=== PATIENT | male | born 1945 | race Caucasian/White ===

== ENCOUNTER 2018-09-04 14:09 | Emergency (ER) | payer MEDICARE, OTHER ==
[~2018-09-04] VITALS: Ht 167.6 cm; Wt 93.0 kg
[2018-09-04 15:15] LABS: BASO % 1 % (0-3); EOS # 0.1 x10^3/uL (0.0-0.7); EOS % 3 % (0-3); HEMOGLOBIN 15.2 g/dL (13.0-17.5); LYMPH # 1.8 x10^3/uL (1.0-4.8); LYMPH % 39 % (24-48); MEAN CORPUSCULAR HEMOGLOBIN 32 pg (25-35); MEAN CORPUSCULAR HGB CONC 35 g/dL (31-37); MEAN CORPUSCULAR VOLUME 91 fL (79-100); MONO # 0.5 x10^3/uL (0.0-1.1); MONO % 10 % (0-9); NEUT # 2.2 x10^3uL (1.8-7.7); NEUT % 47 % (31-73); PLATELET COUNT 167 x10^3/uL (140-400); RED BLOOD COUNT 4.83 x10^6/uL (4.30-5.70); RED CELL DISTRIBUTION WIDTH 14.1 % (11.5-14.5); WHITE BLOOD COUNT 4.6 x10^3/uL (4.0-11.0)
[2018-09-04] MEDS ORDERED: valACYclovir 500 MG TABLET. PO ONE (15:15)
[2018-09-04 15:24] LABS: CALCIUM 9.8 mg/dL (8.5-10.1); GFR 73.5; POTASSIUM 3.7 mmol/L (3.5-5.1)
[2018-09-04 15:30] LABS: ALBUMIN 4.1 g/dL (3.4-5.0); ALBUMIN/GLOBULIN RATIO 1.2 (1.0-1.7); TOTAL BILIRUBIN 0.6 mg/dL (0.2-1.0); TOTAL PROTEIN 7.5 g/dL (6.4-8.2)
--- NOTE | 2018-09-04 15:31 | RAD ---
RS Compliance Statement: One or more of the following individualized dose reduction techniques were utilized for this examination: 1. Automated exposure control 2. Adjustment of the mA and/or kV according to patient size 3. Use of iterative reconstruction technique CT head without contrast 09/04/2018 3:06 PM INDICATION: Right-sided facial tingling. COMPARISON: None available TECHNIQUE: Multiple axial CT images of the head were obtained from skull base through the vertex without intravenous contrast. FINDINGS: Head: Ventricles, sulci and basal cisterns are within normal limits. There is no hydrocephalus. Gauthier-white matter differentiation is normal. There is no acute intracranial hemorrhage. There is no mass, mass effect or midline shift. Posterior fossa is normal in appearance. Visualized portions of the orbits are normal with exception of bilateral lens replacement. Paranasal sinuses are well aerated. Mastoid air cells are well aerated. Scalp and calvaria are normal. IMPRESSION: No acute intracranial hemorrhage. Electronically signed by: Perla Menon MD (09/04/2018 3:28 PM) [id number]
[2018-09-04] MEDS ORDERED: METH4TAB2 PO (15:39)
[2018-09-04] MEDS ORDERED: VALA10005 PO (15:39)
--- NOTE | 2018-09-04 15:40 | PHYS DOC ---
Past Medical History Past Medical History: High Cholesterol, Hypertension, Other Additional Past Medical Histor: GOUT Past Surgical History: Appendectomy, Other Additional Past Surgical Histo: CATARACTS, LEFT ANKLE Alcohol Use: Occasionally Drug Use: None Adult General Chief Complaint Chief Complaint: OTHER COMPLAINTS HPI HPI 73-year-old relatively healthy male presents with some right sided facial weakness. Patient states he woke up this morning took off his CPAP and noticed that his lips felt funny. He then went in and tried to rinse his mouth out with water and spit in the sink but he noted that he was drooling on the right side of his mouth. He also noticed that it was difficult to close his right eye. He denies any headache. He has not had a rash on his nose or ear. He denies any other lateralizing neurologic weakness.[] Review of Systems Review of Systems Constitutional: Denies fever or chills [] Eyes: Denies change in visual acuity, redness, or eye pain [] HENT: Denies nasal congestion or sore throat [] Respiratory: Denies cough or shortness of breath [] Cardiovascular: No additional information not addressed in HPI [] GI: Denies abdominal pain, nausea, vomiting, bloody stools or diarrhea [] : Denies dysuria or hematuria [] Musculoskeletal: Denies back pain or joint pain [] Integument: Denies rash or skin lesions [] Neurologic: Per history of present illness[] Endocrine: Denies polyuria or polydipsia [] All other systems were reviewed and found to be within normal limits, except as documented in this note. Current Medications Current Medications Current Medications Medications (Trade) Dose Ordered Sig/Nona Start Time Stop Time Status Last Admin Dose Admin Valacyclovir HCl (Valtrex) 1,000 mg 1X ONCE 09/04/18 15:15 09/04/18 15:16 DC Allergies Allergies Allergies Coded Allergies Type Severity Reaction Last Updated Verified Sulfa (Sulfonamide Antibiotics) Allergy Intermediate Rash 09/04/18 Yes diclofenac Allergy Intermediate Rash 09/04/18 Yes nitrofurantoin Allergy Intermediate Rash 09/04/18 Yes Physical Exam Physical Exam Constitutional: Well developed, well nourished, no acute distress, non-toxic appearance. [] HENT: Normocephalic, atraumatic, bilateral external ears normal, oropharynx moist, no oral exudates, nose normal. [] Eyes: PERRLA, EOMI, conjunctiva normal, no discharge. [] Neck: Normal range of motion, no tenderness, supple, no stridor. [] Cardiovascular:Heart rate regular rhythm, no murmur [] Lungs & Thorax: Bilateral breath sounds clear to auscultation [] Abdomen: Bowel sounds normal, soft, no tenderness, no masses, no pulsatile masses. [] Skin: Warm, dry, no erythema, no rash. [] Back: No tenderness, no CVA tenderness. [] Extremities: No tenderness, no cyanosis, no clubbing, ROM intact, no edema. [] Neurologic: Subtle right facial paralysis with forehead involvement. [] Psychologic: Affect normal, judgement normal, mood normal. [] Current Patient Data Vital Signs Vital Signs Date Time Temp Pulse Resp B/P (MAP) Pulse Ox O2 Delivery O2 Flow Rate FiO2 09/04/18 14:18 98.4 93 16 184/91 (122) 97 Room Air 98.4 Lab Values Laboratory Tests Test 09/04/18 14:42 White Blood Count 4.6 x10^3/uL (4.0-11.0) Red Blood Count 4.83 x10^6/uL (4.30-5.70) Hemoglobin 15.2 g/dL (13.0-17.5) Hematocrit 44.0 % (39.0-53.0) Mean Corpuscular Volume 91 fL (79-100) Mean Corpuscular Hemoglobin 32 pg (25-35) Mean Corpuscular Hemoglobin Concent 35 g/dL (31-37) Red Cell Distribution Width 14.1 % (11.5-14.5) Platelet Count 167 x10^3/uL (140-400) Neutrophils (%) (Auto) 47 % (31-73) Lymphocytes (%) (Auto) 39 % (24-48) Monocytes (%) (Auto) 10 % (0-9) H Eosinophils (%) (Auto) 3 % (0-3) Basophils (%) (Auto) 1 % (0-3) Neutrophils # (Auto) 2.2 x10^3uL (1.8-7.7) Lymphocytes # (Auto) 1.8 x10^3/uL (1.0-4.8) Monocytes # (Auto) 0.5 x10^3/uL (0.0-1.1) Eosinophils # (Auto) 0.1 x10^3/uL (0.0-0.7) Basophils # (Auto) 0.0 x10^3/uL (0.0-0.2) Sodium Level 146 mmol/L (136-145) H Potassium Level 3.7 mmol/L (3.5-5.1) Chloride Level 105 mmol/L (98-107) Carbon Dioxide Level 32 mmol/L (21-32) Anion Gap 9 (6-14) Blood Urea Nitrogen 15 mg/dL (8-26) Creatinine 1.0 mg/dL (0.7-1.3) Estimated GFR (Cockcroft-Gault) 73.5 BUN/Creatinine Ratio 15 (6-20) Glucose Level 96 mg/dL (70-99) Calcium Level 9.8 mg/dL (8.5-10.1) Total Bilirubin Pending Aspartate Amino Transferase (AST) Pending Alanine Aminotransferase (ALT) Pending Alkaline Phosphatase Pending Total Protein Pending Albumin Pending Albumin/Globulin Ratio Pending Laboratory Tests 09/04/18 14:42 Laboratory Tests 09/04/18 14:42 EKG EKG [] Interpretation Time: EKG: Normal sinus rhythm rate of [address]-T changes Radiology/Procedures Radiology/Procedures [] Impressions: PROCEDURE: CT HEAD WO CONTRAST PQRS Compliance Statement: One or more of the following individualized dose reduction techniques were utilized for this examination: 1. Automated exposure control 2. Adjustment of the mA and/or kV according to patient size 3. Use of iterative reconstruction technique CT head without contrast 09/04/2018 3:06 PM INDICATION: Right-sided facial tingling. COMPARISON: None available TECHNIQUE: Multiple axial CT images of the head were obtained from skull base through the vertex without intravenous contrast. FINDINGS: Head: Ventricles, sulci and basal cisterns are within normal limits. There is no hydrocephalus. Gauthier-white matter differentiation is normal. There is no acute intracranial hemorrhage. There is no mass, mass effect or midline shift. Posterior fossa is normal in appearance. Visualized portions of the orbits are normal with exception of bilateral lens replacement. Paranasal sinuses are well aerated. Mastoid air cells are well aerated. Scalp and calvaria are normal. IMPRESSION: No acute intracranial hemorrhage. Course & Med Decision Making Course & Med Decision Making Pertinent Labs and Imaging studies reviewed. (See chart for details) [ED course: Evaluation reveals 73-year-old male with findings of Rivero's palsy. Treating him with Valtrex and prednisone as an outpatient. I've instructed the patient to follow up with his primary care physician this week to check for resolving symptoms. I've also encouraged him to use moisturizing eyedrops at night.] Dragon Disclaimer Dragon Disclaimer This electronic medical record was generated, in whole or in part, using a voice recognition dictation system. Departure Departure Impression: Primary Impression: Rivero's palsy Disposition: HOME, SELF-CARE Condition: STABLE Referrals: DARLING BALDERAS MD (PCP) Patient Instructions: Rivero's Palsy Additional Instructions: Be sure to use moisturizing eyedrops especially at night.. Return to the emergency department with any new or concerning symptoms Scripts Methylprednisolone (MEDROL) 4 Mg Tab.ds.pk 1 PKG PO UD for arthritis, #1 PKG Prov: ROMERO WALL DO 09/04/18 Valacyclovir Hcl (VALTREX) 1,000 Mg Tablet 1 TAB PO DAILY, #30 TAB 0 Refills Prov: ROMERO WALL DO 09/04/18 ROMERO WALL DO Sep 04, 2018 15:40
[2018-09-04 15:58] VITALS: BP 170/81
--- NOTE | 2018-09-05 04:07 | EKG ---
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
== END 2018-09-04 16:45 | disposition home or self-care (01) ==
LOC: ER 14:09
DX: G51.0 Bell's palsy (principal); I10 Essential (primary) hypertension; E78.00 Pure hypercholesterolemia, unspecified; M10.9 Gout, unspecified; Z88.2 Allergy status to sulfonamides; Z88.8 Allergy status to other drugs, medicaments and biological substances
CPT/HCPCS: 36415; 70450; 80053; 85025; 93005; 99284-25

== ENCOUNTER → 2019-02-28 | Outpatient (CLI) | payer MEDICARE, OTHER ==
[~2019-02-28] MED LIST: METH4TAB2 PO; VALA10005 PO
--- NOTE | 2019-02-28 12:20 | KCIC ---
Limited ultrasound of the abdomen. Abdominal aortic aneurysm screening. INDICATION: Screening exam. Hypertension. Former smoker. COMPARISON STUDY: CT of the abdomen and pelvis with contrast August 17, 2006. Discussion: Ultrasound evaluation of the abdominal aorta was performed. The proximal abdominal aorta is not visualized secondary to overlying gas filled bowel. The abdominal aorta measures up to 2.0 cm in diameter. Distal abdominal aorta measures up to 2.0 cm in diameter. Visualized aorta demonstrates no aneurysmal change. Diffuse atherosclerotic vascular disease is noted. The iliac arteries appear grossly unremarkable. IMPRESSION: 1. Nonvisualization of the proximal aorta. Mid and distal aorta are normal in caliber. 2. Diffuse atherosclerotic vascular disease Electronically signed by: Marques Meléndez MD (02/28/2019 12:18 PM) [id number]
== END | disposition home or self-care (01) ==
LOC: KCIC US 08:53
PROVIDERS: ATTEND Family Medicine
DX: Z13.6 Encounter for screening for cardiovascular disorders (principal); I70.0 Atherosclerosis of aorta; I10 Essential (primary) hypertension; Z87.891 Personal history of nicotine dependence
CPT/HCPCS: 76770